=== PATIENT | male | born 1990 | race Caucasian/White ===

== ENCOUNTER 2018-04-12 | Emergency (ER) | payer SELFPAY ==
--- NOTE | 2018-04-12 00:22 | NUR ---
PATIENT LEFT WITHOUT BEING SEEN BY DR. GILMORE. NO FURTHER CARE PROVIDED FOR PATIENT.
== END 2018-04-12 00:22 | disposition left against medical advice (07) ==
LOC: MED
DX: Z53.21 Procedure and treatment not carried out due to patient leaving prior to being seen by health care provider (principal)